=== PATIENT | female | born 1970 | race Caucasian/White ===

== ENCOUNTER 2017-04-17 20:57 | Emergency (ER) | payer OTHER ==
[2017-04-17 21:11] VITALS: RESP 16; TEMP 98.6
[2017-04-17 21:11] LABS: LEUKOCYTE ESTERASE,URINE NEGATIVE (NEGATIVE); NITRITE,URINE NEGATIVE (NEGATIVE); PH,URINE 5.5 (5.0-7.5)
[2017-04-17 21:12] LABS: COLOR PALE YELLOW
[2017-04-17 21:18] LABS: BACTERIA TRACE /hpf (NONE SEEN); RBC,URINE OCCASIONAL /hpf (0-3); WBC,URINE NONE SEEN /hpf (0-3)
--- NOTE | 2017-04-17 21:18 | EDPHY ---
H & P Time Seen by Provider: 04/17/17 21:07 HPI/ROS: 47-year-old female with history of irritable bowel syndrome and occasional urinary tract infections presents today complaining of urgency followed by small amount of urination, and suprapubic pain left greater than right of 4 days duration. Her last period was approximately 5 months ago No vaginal discharge, no fevers no chills Review of systems As per HPI General no fever no chills no weakness HEENT no eye pain no eye discharge. No eye redness, no sore throat Respiratory no cough, no shortness of breath Cardiac no chest pain, no peripheral edema GI no abdominal pain, no diarrhea, no constipation, no nausea, no vomiting no flank pain, no hematuria, positive dysuria Musculoskeletal no myalgias, no joint pain Heme no easy bruising, no easy bleeding Endo no polyuria, no polydipsia Skin no rashes, no pruritus Neuro no syncope, no dizziness, no headaches Psych is no suicidal ideation, no homicidal ideation Past Medical/Surgical History: Irritable bowel syndrome Depression Occasional urinary tract infection Social History: Denies alcohol or drug use Smoking Status: Never smoked Physical Exam: 47-year-old female alert and oriented no acute distress nontoxic appearance afebrile HEENT atraumatic normocephalic, extraocular muscles intact, anicteric Oropharynx negative for erythema negative exudate, tolerating her own secretions Neck supple no meningismus Lungs clear to auscultation bilaterally Heart regular rate and rhythm without murmur rub or gallop Abdomen nondistended normoactive bowel sounds soft nontender Back no CVA tenderness, no step-offs, no spinal tenderness Extremities no cyanosis clubbing or edema Neuro alert and oriented, no focal deficits External genitalia normal, no lesions Bimanual no cervical motion tenderness, positive bilateral adnexal tenderness, left greater than right Constitutional: Initial Vital Signs Temperature (C) 37 C 04/17/17 21:09 Heart Rate 95 04/17/17 21:09 Respiratory Rate 16 04/17/17 21:09 Blood Pressure 146/102 H 04/17/17 21:09 O2 Sat (%) 94 04/17/17 21:09 O2 Delivery Mode Room Air Allergies/Adverse Reactions: Sulfa (Sulfonamide Antibiotics) Allergy (Verified 04/17/17 21:08) Home Medications: Medication Instructions Recorded Anti-Depressant 04/17/17 Peppermint Oil [Ibgard] 90 mg PO 04/17/17 Medical Decision Making - Diagnostics Imaging Results: Imaging Impressions Pelvic/Renal Ultrasound 04/17/17 21:41 Impression: 1. Uterine leiomyomata with a right-sided fundal pedunculated 5.5 x 4.9 x 3.6 cm hypoechoic leiomyoma and a second mid body submucosal 1.4 x 1 x 1.3 cm leiomyoma. 2. No adnexal masses or ovarian torsion. 3. No ascites. Findings and recommendations discussed with Emergency Department physician, Viviana Noland MD at 23:05 hour, 04/17/2017. Final report concurs with initial preliminary interpretation. ED Course/Re-evaluation: Medical decision making an ER course Patient seen and evaluated for urinary urgency dysuria and adnexal pain A urinalysis negative leuk esterase negative nitrate CBC, CMP, lipase within normal limits Ultrasound of uterus positive for uterine fibroid, ovaries with good blood flow Differential diagnosis considered Urinary tract infection, pyelonephritis, PID, ovarian torsion, uterine fibroid, dysmenorrhea Impression Uterine fibroid Plan Follow-up gynecology - Data Points Laboratory Results: Laboratory Results 04/17/17 22:12 04/17/17 22:12 04/17/17 04/17/17 04/17/17 22:12 22:12 21:03 WBC 10.37 10^3/uL H 10^3/uL (3.80-9.50) RBC 4.68 10^6/uL 10^6/uL (4.18-5.33) Hgb 14.0 g/dL g/dL (12.6-16.3) Hct 39.9 % % (38.0-47.0) MCV 85.3 fL fL (81.5-99.8) MCH 29.9 pg pg (27.9-34.1) MCHC 35.1 g/dL g/dL (32.4-36.7) RDW 12.8 % % (11.5-15.2) Plt Count 357 10^3/uL 10^3/uL (150-400) MPV 9.1 fL fL (8.7-11.7) Neut % (Auto) 65.5 % % (39.3-74.2) Lymph % (Auto) 25.3 % % (15.0-45.0) [place] % (Auto) 6.7 % % (4.5-13.0) Eos % (Auto) 1.7 % % (0.6-7.6) Baso % (Auto) 0.5 % % (0.3-1.7) Nucleat RBC Rel Count 0.0 % % (0.0-0.2) Absolute Neuts (auto) 6.80 10^3/uL H 10^3/uL (1.70-6.50) Absolute Lymphs (auto) 2.62 10^3/uL 10^3/uL (1.00-3.00) Absolute Monos (auto) 0.69 10^3/uL 10^3/uL (0.30-0.80) Absolute Eos (auto) 0.18 10^3/uL 10^3/uL (0.03-0.40) Absolute Basos (auto) 0.05 10^3/uL 10^3/uL (0.02-0.10) Absolute Nucleated RBC 0.00 10^3/uL 10^3/uL (0-0.01) Immature Gran % 0.3 % % (0.0-1.1) Immature Gran # 0.03 10^3/uL 10^3/uL (0.00-0.10) Sodium 141 mEq/L mEq/L (134-144) Potassium 3.6 mEq/L mEq/L (3.5-5.2) Chloride 102 mEq/L mEq/L (97-110) Carbon Dioxide 22 mEq/l mEq/l (22-31) Anion Gap 17 mEq/L H mEq/L (8-16) BUN 12 mg/dL mg/dL (7-23) Creatinine 0.7 mg/dL mg/dL (0.6-1.0) Estimated GFR > 60 Glucose 107 mg/dL H mg/dL (70-100) Calcium 9.2 mg/dL mg/dL (8.5-10.4) Total Bilirubin 0.4 mg/dL mg/dL (0.1-1.4) AST 29 IU/L IU/L (14-46) ALT 45 IU/L IU/L (9-52) Alkaline Phosphatase 125 IU/L IU/L (38-126) Total Protein 7.0 g/dL g/dL (6.3-8.2) Albumin 4.0 g/dL g/dL (3.5-5.0) Urine Color PALE YELLOW Urine Appearance HAZY Urine pH 5.5 (5.0-7.5) Ur Specific [place] <= 1.005 (1.002-1.030) Urine Protein NEGATIVE (NEGATIVE) Urine Ketones NEGATIVE (NEGATIVE) Urine Blood TRACE H (NEGATIVE) Urine Nitrate NEGATIVE (NEGATIVE) Urine Bilirubin NEGATIVE (NEGATIVE) Urine Urobilinogen 0.2 EU EU (0.2-1.0) Ur Leukocyte Esterase NEGATIVE (NEGATIVE) Urine RBC OCCASIONAL /hpf /hpf (0-3) Urine WBC NONE SEEN /hpf /hpf (0-3) Ur Epithelial Cells 1+ /lpf /lpf (NONE-1+) Urine Bacteria TRACE /hpf H /hpf (NONE SEEN) Urine Glucose NEGATIVE (NEGATIVE) Departure - Departure Disposition: Home, Routine, Self-Care Clinical Impression: Fibroid, uterine, Dysuria, Irritable bowel syndrome (IBS) Condition: Good Instructions: Uterine Fibroids (ED) Additional Instructions: Follow-up with your cardiovascular specialist as soon as possible for further evaluation of your uterine fibroid. A urine culture has been sent in approximately 48 hours if your urine warrants treatment with an antibiotic we will give you a call. Referrals: NONE *PRIMARY CARE P,. [Primary Care Provider] - As per Instructions
[2017-04-17 22:21] LABS: % IMMATURE GRANULYOCYTES 0.3 % (0.0-1.1); ABSOLUTE IMMATURE GRANULOCYTES 0.03 10^3/uL (0.00-0.10); ADD DIFF? NO; ADD MORPH? NO; ADD SCAN? NO; ATYPICAL LYMPHOCYTE FLAG 0 (0-99); FRAGMENT RBC FLAG 0 (0-99); HEMATOCRIT 39.9 % (38.0-47.0); LEFT SHIFT FLG 0 (0-99); LIPEMIA HEMOLYSIS FLAG 90 (0-99); MEAN CELL HEMOGLOBIN 29.9 pg (27.9-34.1); MEAN CELL HEMOGLOBIN CONCENTR. 35.1 g/dL (32.4-36.7); MEAN CELL VOLUME 85.3 fL (81.5-99.8); MEAN PLATELET VOLUME 9.1 fL (8.7-11.7); PLATELET CLUMPS FLAG 0 (0-99); PLATELET COUNT 357 10^3/uL (150-400); RED BLOOD CELL COUNT 4.68 10^6/uL (4.18-5.33); RED CELL DISTRIBUTION WIDTH 12.8 % (11.5-15.2)
[2017-04-17 22:33] LABS: ALANINE AMINOTRANSFERASE 45 IU/L (9-52); ALKALINE PHOSPHATASE 125 IU/L (38-126); ANION GAP 17 mEq/L (8-16); ASPARTATE AMINOTRANSFERASE 29 IU/L (14-46); BILIRUBIN,TOTAL 0.4 mg/dL (0.1-1.4); CALCIUM 9.2 mg/dL (8.5-10.4); CARBON DIOXIDE 22 mEq/l (22-31); CHLORIDE 102 mEq/L (97-110); CREATININE 0.7 mg/dL (0.6-1.0); GLOMERULAR FILTRATION RATE > 60; GLUCOSE 107 mg/dL (70-100); POTASSIUM 3.6 mEq/L (3.5-5.2); SODIUM 141 mEq/L (134-144)
[2017-04-17 23:29] VITALS: BP 128/87; PULSE 78; O2SAT 96
== END 2017-04-17 23:29 | disposition home or self-care (01) ==
LOC: CED 20:57
DX: D25.9 Leiomyoma of uterus, unspecified (principal); K58.9 Irritable bowel syndrome, unspecified
CPT/HCPCS: 76856-PO; 80053-PO; 81003-PO; 81015-PO; 85025-PO